=== PATIENT | female | born 1995 | race Caucasian/White ===

== ENCOUNTER 2018-07-25 19:01 | Emergency (ER) | payer MEDICAID ==
[~2018-07-25] VITALS: Ht 160 cm; Wt 43.5 kg
[2018-07-25 19:33] VITALS: BP 140/100
--- NOTE | 2018-07-25 19:36 | NUR ---
PT AMBULATED TO LOBBY WITH VSS. PT PROVIDED URINE.
--- NOTE | 2018-07-25 20:00 | NUR ---
PATIENT AMBULATED TO ER CHAIR E.
--- NOTE | 2018-07-25 20:15 | NUR ---
PT IS A 22 Y/O FEMALE WHO PRESENTS TO THE ED C/O ANXIETY. PT STATES THAT IT HAS BEEN GOING ON X1 MONTH. PT DENIES PAIN AT THIS TIME. PT DENIES CP, SOB, N/V/D. PT AWAKE AND ALERT, RR EVEN/UNLABORED. PT REPOSITIONED FOR COMFORT, BED IN LOWEST POSITION. ER PROVIDER NOTIFIED. WILL CONTINUE TO MONITOR.
[2018-07-25 21:00] VITALS: BP 128/75
--- NOTE | 2018-07-25 21:00 | NUR ---
Patient discharged with v/s stable. Written and verbal after care instructions given and explained. Patient alert, oriented and verbalized understanding of instructions. Ambulatory with steady gait. All questions addressed prior to discharge. ID band removed. Patient advised to follow up with PMD. Rx of ATIVAN 1MG given. Patient educated on indication of medication including possible reaction and side effects. Opportunity to ask questions provided and answered.
== END 2018-07-25 21:00 | disposition home or self-care (01) ==
LOC: MED 19:01
DX: F41.9 Anxiety disorder, unspecified (principal)
CPT/HCPCS: 81002; 81025; 87086; 99284; 99285